=== PATIENT | female | born 1965 | race Caucasian/White ===

== ENCOUNTER 2019-02-03 05:40 | Day surgery (SDC) | payer OTHER ==
[~2019-02-03] VITALS: Ht 160 cm; Wt 59.0 kg
[2019-02-03 10:44] VITALS: Ht 160 cm; Wt 59.0 kg
[2019-02-03] MEDS ORDERED: NO MEDS. (10:50)
[2019-02-03 11:31] VITALS: BP 155/67; PULSE 78; RESP 20
[2019-02-03] MEDS ORDERED: MIDAZOLAM 1 MG/ML 2 ML INJ ONE ×2 (12:57)
[2019-02-03] MEDS ORDERED: FENTAnyl 50 MCG/ML VIAL ONE (12:57)
[2019-02-03 13:05] VITALS: BP 122/60; PULSE 78; RESP 16
== END 2019-02-03 14:57 | disposition home or self-care (01) ==
LOC: GIL 05:40
PROVIDERS: ATTEND Internal Medicine Gastroenterology
DX: K92.1 Melena (principal); D12.5 Benign neoplasm of sigmoid colon; K64.8 Other hemorrhoids
CPT/HCPCS: 45380; 45385; 88305; J2250; J3010; Z7610